=== PATIENT | male | born 1955 | race Hispanic/Latino ===

== ENCOUNTER → 2021-04-13 | Outpatient (CLI) | payer OTHER ==
[~2021-04-13] MED LIST: AMIO100T4 PO; CARV6.25 PO; FURO40TA5 PO; INSU300I3 SQ; METF-910 PO; SACU1TAB PO; SPIR25TA6 PO; TAMS-1 PO
== END | disposition home or self-care (01) ==
LOC: SHCH 14:36
PROVIDERS: ATTEND Internal Medicine Cardiovascular Disease
DX: I42.8 Other cardiomyopathies (principal)
CPT/HCPCS: 93306; 93356

== ENCOUNTER → 2022-09-26 | Outpatient (CLI) | payer OTHER, MEDICARE ==
[2022-09-26 12:22] LABS: BASOPHILS % (AUTO) 0.6 % (0.0-5.0); EOSINOPHILS % (AUTO) 1.6 % (0.0-8.0); HEMATOCRIT 41.4 % (42-54); LYMPHOCYTES % (AUTO) 29.4 % (21.0-51.0); MEAN CORPUSCULAR HEMOGLOBIN 30.9 pg (27.0-33.0); MEAN CORPUSCULAR HGB CONC 34.1 g/dL (32.0-36.0); MEAN CORPUSCULAR VOLUME 90.6 fL (79-99); MONOCYTES % (AUTO) 5.7 % (3.0-13.0); NEUTROPHILS % (AUTO) 62.5 % (40.0-77.0); PLATELET COUNT (AUTO) 245 K/uL (130-400); RED BLOOD CELL COUNT(AUTO) 4.57 MIL/uL (4.50-6.20); RED CELL DISTRIBUTION WIDTH 11.9 % (11.0-15.5); WHITE BLOOD COUNT (AUTO) 8.5 K/uL (4.8-10.8)
[2022-09-26 12:49] LABS: ALBUMIN 3.6 g/dL (3.5-5.0); CREATININE 0.8 mg/dL (0.5-1.5); POTASSIUM 4.2 mmol/L (3.5-5.1); TOTAL PROTEIN, SERUM 8.2 g/dL (6.0-8.3)
== END | disposition home or self-care (01) ==
LOC: LAB 11:21
PROVIDERS: ATTEND Nurse Practitioner Acute Care
DX: I48.0 Paroxysmal atrial fibrillation (principal); Z79.01 Long term (current) use of anticoagulants
CPT/HCPCS: 36415; 80053; 85025

== ENCOUNTER → 2022-11-17 | Outpatient (CLI) | payer OTHER, MEDICARE ==
[~2022-11-17] MED LIST changes: -AMIO100T4 PO; +APIX5TAB PO; +ASPI-1197 PO; +FURO20TA4 PO; -FURO40TA5 PO; +ONDA4TAB10 PO; +PANT40TA54 PO; -SACU1TAB PO; +SENN-304 PO; -SPIR25TA6 PO
[2022-11-17 15:24] LABS: BASOPHILS % (AUTO) 0.3 % (0.0-5.0); EOSINOPHILS % (AUTO) 0.3 % (0.0-8.0); HEMATOCRIT 30.4 % (42-54); LYMPHOCYTES % (AUTO) 9.9 % (21.0-51.0); MEAN CORPUSCULAR HEMOGLOBIN 30.4 pg (27.0-33.0); MEAN CORPUSCULAR HGB CONC 32.2 g/dL (32.0-36.0); MEAN CORPUSCULAR VOLUME 94.4 fL (79-99); MONOCYTES % (AUTO) 4.4 % (3.0-13.0); NEUTROPHILS % (AUTO) 84.4 % (40.0-77.0); PLATELET COUNT (AUTO) 350 K/uL (130-400); RED BLOOD CELL COUNT(AUTO) 3.22 MIL/uL (4.50-6.20); WHITE BLOOD COUNT (AUTO) 15.8 K/uL (4.8-10.8)
[2022-11-17 15:41] LABS: ALBUMIN 2.1 g/dL (3.5-5.0); POTASSIUM 4.4 mmol/L (3.5-5.1); TOTAL PROTEIN, SERUM 7.3 g/dL (6.0-8.3)
== END | disposition home or self-care (01) ==
LOC: LAB 14:05
PROVIDERS: ATTEND Nurse Practitioner Acute Care
DX: I50.22 Chronic systolic (congestive) heart failure (principal)
CPT/HCPCS: 36415; 80053; 85025

== ENCOUNTER 2022-12-15 05:58 | Day surgery (SDC) | payer OTHER, MEDICARE ==
[~2022-12-15 05:58] MED LIST changes: +ROSU20TA73 PO
[2022-12-15] MEDS ORDERED: CLOP75TA32 PO (07:17)
[2022-12-15] MEDS ORDERED: FURO40TA5 PO (07:17)
[2022-12-15] MEDS ORDERED: EMPA10TA PO (07:17)
[2022-12-15] MEDS ORDERED: FAMO40TA7 PO (07:17)
[2022-12-15] MEDS ORDERED: AMIO200T68 PO (07:17)
[2022-12-15] MEDS ORDERED: LISI10TA24 PO (07:17)
[2022-12-15 07:28] LABS: INR 0.97 (0.85-1.15); PROTHROMBIN TIME 11.3 SEC (9.6-11.6)
[2022-12-15 07:29] LABS: PARTIAL THROMBOPLASTIN TIME 29.8 SEC (26.3-35.5)
[2022-12-15] MEDS ORDERED: IOHEXOL-350 50ML VIAL IV ONE (09:03)
[2022-12-15] MEDS ORDERED: LIDOCAINE HCL 1% 20 ML VIAL ONE (09:03)
== END 2022-12-15 10:15 | disposition home or self-care (01) ==
LOC: DAH 05:58
PROVIDERS: ATTEND Surgery
DX: K81.0 Acute cholecystitis (principal); Z79.899 Other long term (current) drug therapy; Z79.01 Long term (current) use of anticoagulants
CPT/HCPCS: 76080; 49424; 85610; 85730; 82948; 36415; J1644; Q9967; A4215; A4222; A4221; A4663; A4216; A4606; A4223 ×3

== ENCOUNTER 2023-02-28 07:21 | Day surgery (SDC) | payer OTHER, MEDICARE ==
[2023-02-21 15:56] VITALS: BP 142/72; PULSE 70; RESP 18
[2023-02-28] VITALS (9 sets, daily range): BP systolic 105–163; BP diastolic 58–78; PULSE 60–71; RESP 16
[~2023-02-28] VITALS: Ht 160 cm; Wt 89.7 kg
[~2023-02-28 07:21] MED LIST changes: +0.9%NACL 1000ML 1,000 ML IV ONE; +AMIO200T68 PO; +AMOX500T2 PO; -FURO20TA4 PO; +FURO40TA5 PO; +LISI10TA24 PO; -ONDA4TAB10 PO; +PIOG45TA64 PO; +SEMA0.258 SQ; -SENN-304 PO
[2023-02-28] MEDS ORDERED: AMOX500C2 PO (07:32)
[2023-02-28] MEDS ORDERED: PIOG45TA64 PO (07:52)
[2023-02-28] MEDS ORDERED: PROPOFOL 10 MG/ML 20ML VIAL IV ONE (09:28)
[2023-02-28] MEDS ORDERED: PHENYLEPHRINE HCL 10 MG/ML 1ML VIAL IV ONE (09:48)
== END 2023-02-28 10:45 | disposition home or self-care (01) ==
LOC: ENDO 07:21 → DAH 07:21 → ENDO 10:45
PROVIDERS: ATTEND Internal Medicine Gastroenterology
DX: R19.5 Other fecal abnormalities (principal); K63.5 Polyp of colon; K57.30 Diverticulosis of large intestine without perforation or abscess without bleeding; I10 Essential (primary) hypertension; E11.9 Type 2 diabetes mellitus without complications; I48.91 Unspecified atrial fibrillation; D64.9 Anemia, unspecified; Z82.49 Family history of ischemic heart disease and other diseases of the circulatory system; Z87.891 Personal history of nicotine dependence; Z83.3 Family history of diabetes mellitus; Z82.5 Family history of asthma and other chronic lower respiratory diseases; Z79.899 Other long term (current) drug therapy; Z79.84 Long term (current) use of oral hypoglycemic drugs; Z79.4 Long term (current) use of insulin; Z79.82 Long term (current) use of aspirin; Z90.49 Acquired absence of other specified parts of digestive tract; Z79.01 Long term (current) use of anticoagulants
CPT/HCPCS: 82948; 45380; J7030 ×2; J2704; J2371; A4620; A4215 ×2; A4223; A7002; A4221; A4663; A4216; A4606; C1751; J3490

== ENCOUNTER → 2023-05-14 | Outpatient (CLI) | payer OTHER, MEDICARE ==
[~2023-05-14] MED LIST changes: -0.9%NACL 1000ML 1,000 ML IV ONE; +AMOX500C2 PO; +REGADENOSON 0.4 MG/5 ML PF SYG IVP ONE
== END | disposition home or self-care (01) ==
LOC: SHCH 05-11 08:32
PROVIDERS: ATTEND Internal Medicine Cardiovascular Disease
DX: I25.10 Atherosclerotic heart disease of native coronary artery without angina pectoris (principal)
CPT/HCPCS: 78452; 96374; 93017; J2785; A9500 ×2

== ENCOUNTER → 2023-11-13 | Outpatient (CLI) | payer OTHER ==
[~2023-11-13] MED LIST changes: -REGADENOSON 0.4 MG/5 ML PF SYG IVP ONE
== END | disposition home or self-care (01) ==
LOC: SHCH 08:59
PROVIDERS: ATTEND Internal Medicine Cardiovascular Disease
DX: I35.0 Nonrheumatic aortic (valve) stenosis (principal)
CPT/HCPCS: 93306

== ENCOUNTER 2024-04-22 09:03 | Day surgery (SDC) | payer OTHER, MEDICARE ==
[2024-04-18 15:35] LABS: BASOPHILS # (AUTO) 0.03 K/uL (0.00-0.20); BASOPHILS % (AUTO) 0.5 % (0.0-5.0); EOSINOPHILS # (AUTO) 0.18 K/uL (0.00-0.70); EOSINOPHILS % (AUTO) 2.7 % (0.0-8.0); HEMATOCRIT 40.8 % (42-54); IMMATURE GRANULOCYTE ABSOLUTE 0.01 K/uL (0-1); LYMPHOCYTES # (AUTO) 2.1 K/uL (1.0-4.8); LYMPHOCYTES % (AUTO) 31.6 % (21.0-51.0); MEAN CORPUSCULAR HEMOGLOBIN 31.8 pg (27.0-33.0); MEAN CORPUSCULAR HGB CONC 33.1 g/dL (32.0-36.0); MEAN CORPUSCULAR VOLUME 96.2 fL (79-99); MONOCYTES # (AUTO) 0.4 K/uL (0.1-1.0); MONOCYTES % (AUTO) 5.4 % (3.0-13.0); NEUTROPHILS % (AUTO) 59.6 % (40.0-77.0); PLATELET COUNT (AUTO) 171 K/uL (130-400); RED BLOOD CELL COUNT(AUTO) 4.24 MIL/uL (4.50-6.20); WHITE BLOOD COUNT (AUTO) 6.7 K/uL (4.8-10.8)
[2024-04-18 15:48] LABS: INR 1.01 (0.85-1.15); PROTHROMBIN TIME 10.9 SEC (9.6-11.6)
[2024-04-18 15:49] LABS: PARTIAL THROMBOPLASTIN TIME 30.6 SEC (26.3-35.5)
[2024-04-18 15:59] VITALS: BP 117/54; PULSE 74; RESP 14; TEMP 98.2
[2024-04-18 16:13] LABS: ADD UA MICROSCOPIC YES; APPEARANCE,URINE CLEAR (CLEAR); BILIRUBIN,URINE NEGATIVE (NEGATIVE); COLOR,URINE COLORLESS (YELLOW); GLUCOSE, URINE (UA) >=1000 mg/dL (NEGATIVE); KETONES,URINE NEGATIVE (NEGATIVE); LEUKOCYTE ESTERASE ,URINE 75 Leu/uL (NEGATIVE); NITRATE,URINE NEGATIVE (NEGATIVE); OCCULT BLOOD,URINE NEGATIVE (NEGATIVE); PROTEIN,URINE NEGATIVE (NEGATIVE); UROBILINOGEN,URINE 0.2 mg/dL (0.2-1.0)
[2024-04-18 16:15] LABS: MUCUS,URINE RARE LPF (None Seen); SQUAMOUS EPITHELIAL CELL,UR RARE /HPF (0-2); WBC,URINE 0-1 /HPF (0-1)
[2024-04-18 16:17] LABS: CREATININE 1.3 mg/dL (0.5-1.3); POTASSIUM 4.3 mmol/L (3.5-5.1)
--- NOTE | 2024-04-18 16:23 | HMCIMG ---
CHEST 1VW REASON: PREOP COMPARISON: 11/08/2022 FINDINGS: Single view of the chest was obtained. Lungs are clear. Heart size is normal. There is no pulmonary vascular congestion. Mediastinum and bony thorax appear unremarkable. IMPRESSION: 1. Normal single view chest x-ray.
[2024-04-18 16:34] LABS: B-TYPE NATRIURETIC PEPTIDE 37 pg/mL (0-100)
--- NOTE | 2024-04-19 06:41 | EKG ---
[facility] Test Date: 2024-04-18 Test Time: 16:12:59 Pat Name: TOMER PERRY Department: [facility] Room: Gender: M Edging Machine Feeder: [id number] : 1955 Requested By: KERRI CONTRERAS Order Number: [id number] Reading MD: Lulu Mcleod Measurements Intervals [place] Rate: 83 P: 37 TX: 167 QRS: 56 QRSD: 96 T: 67 QT: 393 QTc: 462 Interpretive Statements Sinus rhythm Compared to ECG 11/21/2022 20:05:56 No significant changes Electronically Signed On 04-19-2024 16:20:21 CHEMIST INSTRUMENTATION by Lulu Mcleod Please click the below link to view image of tracing.
--- NOTE | 2024-04-21 15:23 | NUR ---
RE: LABS REPORTED BUN 22, CREAT 1.3 TO ДМИТРИЙ LOZANO NP. RECEIVED ORDERS TO HAVE PATIENT HYDRATE THIS EVENING. CALLED PATIENT AND INSTRUCTED HIM TO HYDRATE FOR HIS PROCEDURE TOMORROW, PATIENT VERBALIZED UNDERSTANDING.
[~2024-04-22] VITALS: Ht 162.6 cm; Wt 102.4 kg
[2024-04-22] VITALS (11 sets, daily range): BP systolic 98–137; BP diastolic 59–72; PULSE 68–88; RESP 14–18; TEMP 98–98.2
[~2024-04-22 09:03] MED LIST changes: +AMIO100T4 PO; -AMIO200T68 PO; -AMOX500C2 PO; -AMOX500T2 PO; -ASPI-1197 PO; -CARV6.25 PO; +DAPA10TA PO; -FURO40TA5 PO; +FURO80TA3 PO; -ROSU20TA73 PO; +ROSU20TA98 PO; -SEMA0.258 SQ
[2024-04-22] MEDS ORDERED: HEParin-NS 1,000 UNIT/500 ML 500 ML IV ONE ×2 (10:28→11:37)
[2024-04-22] MEDS ORDERED: IOHEXOL-350 50ML VIAL IV ONE (10:28)
[2024-04-22] MEDS ORDERED: NITROGLYCERIN 50MG VIAL ONE (10:28)
[2024-04-22] MEDS ORDERED: BIVALIRUDIN 250 MG/VIAL IV ONE (10:28)
[2024-04-22] MEDS ORDERED: HEParin 10,000 UNIT/10ML (1,000 UNIT/ML) VIAL ONE (10:28)
[2024-04-22] MEDS ORDERED: LIDOCAINE HCL 400MG/20ML VIAL ONE (10:28)
[2024-04-22] MEDS ORDERED: IOHEXOL 350 MG/ML 100ML INFUS..BTL IV ONE (10:28)
[2024-04-22] MEDS: 0.9%NACL 1000ML 1,000 ML IV SCH (10:34)
[2024-04-22] MEDS ORDERED: FENTanyl CITRate PF 50 MCG/1 ML 2ML VIAL ONE ×2 (10:55→12:26)
[2024-04-22] MEDS ORDERED: MIDAZOLAM HCL 1 MG/ML 2ML VIAL ONE (10:55)
[2024-04-22] MEDS ORDERED: metoPROLOL tartRATE 1 MG/ML 5ML VIAL IV ONE ×2 (11:58→11:59)
[2024-04-22] MEDS ORDERED: 0.9%NACL 10ML VIAL IVP SCH (13:00)
[2024-04-22] MEDS ORDERED: DEXTROSE 50%-WATER 50 ML DISP.SYRIN IV PRN (13:00)
--- NOTE | 2024-04-22 13:05 | PRN ---
DATE OF PROCEDURE: 04/22/2024 PROCEDURE PERFORMED: RIGHT AND LEFT HEART CATHETERIZATION SPINNING MULE OPERATOR: Kerri Contreras MD, LOCATED WITHIN [facility] INDICATION: Aortic stenosis PROCEDURE NOTE: After informed consent was obtained the patient was prepped and draped in the [facility] sterile fashion. A 6 Amharic 55 cm arterial sheath was inserted in the right femoral artery using a micropuncture technique with ultrasound guidance. This was performed after fluoroscopic identification of bony landmarks to facilitate a more accurate puncture of the right common femoral artery. The arterial sheath was aspirated and flushed. A seven Amharic venous sheath with hemostatic valve was then inserted into the right common femoral vein again with ultrasound guidance and micropuncture technique. A seven Amharic S tip [place] catheter was advanced using balloon floatation to the right heart with pressure measurements in the RA, RV, PA, and pulmonary capillary wedge positions. A 6 Amharic pigtail catheter was then advanced over a J-tipped guidewire to the ascending aorta and using a straight wire we traverse the aortic valve with mild difficulty only. The catheter was aspirated and flushed and simultaneous pressure measurements were obtained both in descending aorta and LV. Cardiac output determinations were obtained and calculation of aortic valve area using both Sydnee and thermodilution were obtained. A left ventriculogram was then performed in a 30 [place] projection. A pullback procedure was then performed, and this catheter was removed over a J-tipped guidewire. A 6F JL-4 was then advanced to the ascending aorta over a J-tipped guidewire, was aspirated and flushed, and was used for selective left coronary angiograms in multiple obliquities. A JR-4 was advanced in a similar fashion to the asc ending aorta over a J-tipped guidewire and was used for selective right coronary angiograms in multiple obliquities with findings as outlined below. A right common femoral angiogram was performed to assess suitability for Perclose suture closure and the Perclose device was deployed in standard fashion. Perclose suture closure was successful without bleeding or hematoma. The patient tolerated the procedure well and was returned to the holding area in stable condition. FINDINGS: RIGHT HEART CATHETERIZATION: RA pressure was 17 mm of mercury on the V-wave and 15 mm of mercury mean. There was no A-wave because of atrial fibrillation. RV pressure was 45/2 mm of mercury. PA pressure 45/20 mm of mercury, with mean PA pressure of 26 mm of mercury. Pulmonary capillary wedge pressure was 20 mm of mercury on the V-wave and 17 mm of mercury mean. Cardiac output using thermodilution was 4.4 with cardiac index of 2.2 L per minute per meter squared. Sydnee cardiac output was 4.8 with cardiac index of 2.4 L per minute per meter squared. LEFT HEART HEMODYNAMICS: LVEDP was 16 mm of mercury prior to LV-gram in 18 mm of mercury after LV-gram Peak to peak aortic valve gradient was 18 mm of mercury Mean aortic valve gradient was 14 mm of mercury Aortic valve area was 1.4 cm2 using thermodilution Aortic valve area was 1.5 cm2 using Sydnee cardiac output estimate LEFT VENTRICULOGRAM: A left ventriculogram demonstrated an LVEF of 50% using single plane planimetry. There was no mitral valve regurgitation. CORONARY ANGIOGRAM: LEFT MAIN: The left main coronary was normal. LEFT ANTERIOR DESCENDING: The ostial LAD had a 30% stenosis in the mid to distal LAD of 40% stenosis. The diagonal branches were normal. LEFT CIRCUMFLEX: The left circumflex was nondominant with a 30% ostial stenosis. The OM1 was normal in the OM2 had a 40% ostial stenosis. RAMUS INTERMEDIATE BRANCH: There was no ramus intermediate branch. RIGHT CORONARY ARTERY: The right coronary artery was dominant and had a 40% proximal stenosis.. IMPRESSION: Mild global hypokinesis with LVEF of 50% by single plane planimetry. No mitral valve regurgitation. Moderate aortic stenosis with peak aortic valve gradient of 18 mm of mercury, mean aortic valve gradient of 14 mm of mercury by simultaneous pressure measurement. Aortic valve area 1.4 cm2 by thermodilution and 1.5 cm2 by Sydnee estimate of cardiac output. Nonobstructive coronary artery disease: 30% ostial LAD stenosis and 40% mid to distal LAD stenosis 30% ostial left circumflex stenosis 40% OM2 stenosis 40% proximal RCA stenosis. RECOMMENDATION: Risk factor modification to prevent progression of coronary disease. Continued medical therapy with SB prophylaxis for moderate aortic stenosis. Consider repeat cardiac catheterization in 1-2 years. COMPLICATIONS OF PROCEDURE: None, the patient tolerated the procedure well and was returned to his room in stable condition. HEMOSTASIS: Perclose suture closure was successful without bleeding or hematoma. ESTIMATED BLOOD LOSS: 10 mL. CONTRAST TOTAL: 125 mL. KERRI CONTRERAS MD Apr 22, 2024 13:05
[2024-04-22] MEDS ORDERED: ROSU40TA88 PO (14:58)
[2024-04-22] MEDS ORDERED: INSULIN humuLIN R 100 UNIT/ML 3ML SQ SCH (16:30)
--- NOTE | 2024-04-22 18:00 | NUR ---
verified called dr oliva to see when pt is ok to resume eliquis. ok to resume in am. spouse notified
--- NOTE | 2024-04-22 18:07 | NUR ---
Full and complete discharge instructions given both verbally and in writing to Patient and . Femoral site precautions discussed with all questions answered. Femoral site clean, soft without bleeding or hematoma evident. Pedal pulses intact. PIV dc'd with catheter tip intact. W/C to POV with to home.
== END 2024-04-22 18:00 | disposition home or self-care (01) ==
LOC: DAH 09:03
PROVIDERS: ATTEND Internal Medicine Cardiovascular Disease
DX: I35.0 Nonrheumatic aortic (valve) stenosis (principal); I25.10 Atherosclerotic heart disease of native coronary artery without angina pectoris; I48.0 Paroxysmal atrial fibrillation; I11.0 Hypertensive heart disease with heart failure; I50.32 Chronic diastolic (congestive) heart failure; E78.5 Hyperlipidemia, unspecified; E11.9 Type 2 diabetes mellitus without complications; E66.01 Morbid (severe) obesity due to excess calories; G47.33 Obstructive sleep apnea (adult) (pediatric); Z79.01 Long term (current) use of anticoagulants; Z79.899 Other long term (current) drug therapy; Z98.890 Other specified postprocedural states; Z68.41 Body mass index [BMI] 40.0-44.9, adult; Z79.84 Long term (current) use of oral hypoglycemic drugs
CPT/HCPCS: 80048; 83880; 85025; 85610; 85730; 87086; 81001; 36415; 71045; 93005; 93460; 82948; C1769 ×3; C1894 ×4; C1760; C1893; Q9965; J3010 ×2; J3490 ×4; J7030; J1644 ×3; J2250; Q9967 ×2; A4215; A4222; A4221; A4663; A4216; A4606; A4223 ×3; 99156; 99157; J0583

== ENCOUNTER 2024-07-19 12:03 | Emergency (ER) | payer OTHER, MEDICARE ==
[~2024-07-19] VITALS: Ht 162.6 cm; Wt 102.1 kg
[~2024-07-19 12:03] MED LIST changes: -ROSU20TA98 PO; +ROSU40TA88 PO
[2024-07-19 12:15] VITALS: BP 143/79; PULSE 86; RESP 16; TEMP 98.2; O2SAT 95
--- NOTE | 2024-07-19 12:18 | ERN ---
General Chief Complaint: Eye Problems Stated Complaint: RED EYE Time Seen by MD: 12:03 History of Present Illness Initial Comments 68-year-old male who presents for right eye redness. Patient reports he woke up this morning with a subconjunctival hemorrhage. He was no irritation no patient was changes or further complaints Allergies: Coded Allergies: No Known Drug Allergies (Verified Allergy, Unknown, 03/22/21) Home Meds Reported Medications Rosuvastatin Calcium (Rosuvastatin Calcium) 40 Mg Tablet, 40 MG PO DAILY, TAB 04/22/24 Furosemide (Furosemide) 80 Mg Tablet, 1 TAB PO DAILY for 30 Days, #30 TAB 0 Refills 04/18/24 Amiodarone HCl (Amiodarone HCl) 100 Mg Tablet, 1 TAB PO DAILY for 30 Days, #30 TAB 0 Refills 04/18/24 Dapagliflozin Propanediol (Farxiga) 10 Mg Tablet, 1 TAB PO DAILY for 30 Days, #30 TAB 0 Refills 04/18/24 Pioglitazone HCl (Pioglitazone HCl) 45 Mg Tablet, 45 MG PO DAILY, TAB 02/28/23 Lisinopril (Lisinopril) 10 Mg Tablet, 10 MG PO DAILY, TAB 02/23/23 Pantoprazole Sodium (Pantoprazole Sodium) 40 Mg Tablet.dr, 40 MG PO DAILY, TAB 11/04/22 Apixaban (Eliquis) 5 Mg Tablet, 5 MG PO BID, TAB 11/04/22 Insulin Glargine,Hum.rec.anlog (Toujeo Max Solostar) 300 Unit/Ml (3 Ml) Ins uln.pen, 60 UNIT SQ HS, SYRINGE 03/25/21 Metformin HCl (Metformin HCl ER) 500 Mg Tab.er.24h, 500 MG PO DAILYBKFST, TAB 03/25/21 Tamsulosin HCl (Flomax) 0.4 Mg Cap.er.24h, 0.4 MG PO DAILY, CAPSULE. 03/25/21 Past Medical History Past Medical History: Diabetes-Type II, High Cholesterol, Heart Disease Past Surgical History: Cholecystectomy, Other ROS Dictation CONSTITUTIONAL: No chills, no fever, no weakness, no diaphoresis, no malaise. HEAD/FACE: No signs of trauma. EENT: Right eye subconjunctival hemorrhage no complaints RESPIRATORY: No cough, no orthopnea, no SOB, no stridor, no wheezing. CARDIOVASCULAR: No chest pain, no edema, no palpitations, no syncope. GASTROINTESTINAL/ABDOMINAL: No abdominal pain, no constipation, no diarrhea, no nausea, no vomiting. GENITOURINARY: No abnormal discharge, no dysuria, no frequent urination, no hematuria. No complaints of pain in the genitals. MUSCULOSKELETAL: No back pain, no gout, no joint pain, no joint swelling, no muscle pain, no muscle stiffness, no neck pain. INTEGUMENTARY: No change in color, no change in hair/nails, no dryness, no lesion, no lumps, no rash. NEUROLOGICAL/PSYCH: No anxiety, not depressed, no emotional problem, no headache, no numbness, no pre-existing deficit, no history of seizures, no tremors, no weakness. HEMATOLOGIC/LYMPHATIC: Not anemic, no history of blood clots, no apparent bleeding, no bruising, glands not swollen. All Systems Negative, Except as Noted. Physical Exam Physical Exam Dictation VITAL SIGNS: Reviewed. GENERAL APPEARANCE: Alert, oriented x3, no acute distress, obese. HEAD AND FACE: Non-traumatic. EYES: PERRL, right subconjunctival hemorrhage, anterior chamber clear, no trauma EARS: Pinnas intact and no signs of trauma or erythema. Ear canals clear and no discharge. TMs no erythema. NOSE: No discharge, no bleeding. OROPHARYNX: Mouth normal, teeth no caries, tongue pink. Pharynx clear, no erythema. Tonsils no exudates, no abscesses noted. Mucous membrane moist. NECK: Supple, non-tender, no thyromegaly, no masses, no JVD, no bruits. BREAST: Deferred. CHEST: No tenderness, no crepitus, no paradoxical movement, no retractions. LUNGS: Clear, well-ventilated, symmetric, no rales, no wheezing, no rhonchi, no stridor, good breath sounds bilaterally. HEART: Regular rate, regular rhythm, no murmur, no gallops. VASCULAR: No peripheral edema. ABDOMEN: Soft, positive bowel sounds, nondistended, no guarding, nontender, no rebound, no masses no hepatomegaly, no splenomegaly, no Lundy's sign, no hernias. RECTAL: Deferred. GENITAL: Deferred. NEUROLOGICAL: Normal speech, gross motor function intact, gross sensory function intact. MUSCULOSKELETAL: Neck nontender, full range of motion, back nontender, full r swati of motion. EXTREMITIES: Nontender, full range of motion. SKIN: Color pink, dry, no turgor, no rash, no lacerations, no abrasions, no contusions. LYMPHATICS: Deferred. MDM CC: Eye redness Atraumatic Historian: Patient Comorbidities: Diabetes hypertension, anticoagulated Limitations by social determinants of health: None Differential diagnosis: Subconjunctival hemorrhage Vital signs are stable Clinically patient has a subconjunctival hemorrhage. I suspect it is due to the blood thinners. No vision changes, ELAYNE, EOMI, the blood is only in the conjunctiva, does not go into the anterior chamber. He was no complaints There is no labs or imaging indicated We will DC with supportive care ED Course Vital Signs Date Time Temp Pulse Resp B/P (MAP) Pulse Ox O2 Delivery O2 Flow Rate FiO2 07/19/24 12:15 98.2 86 16 143/79 95 Room Air* 0 21 07/19/24 12:09 98.2 86 16 143/79 95 Room Air 0 DX & DISP Disposition: Discharge Departure Impression: Primary Impression: Subconjunctival hemorrhage of right eye Condition: Stable Additional Instructions: You have a subconjunctival hemorrhage. This occurs when a small blood vessel in the eye ruptures, causing a red patch on the white part of the eye. This is usually homeless and resolves on its own within a couple of weeks. You can expect color changes in the eye similar to a bruise. No vision loss or pain should occur, though mild irritation or a scratchy sensation may be present. Try to avoid rubbing the eye. This can worsen the bleeding. You can use [id number] artificial tears as needed for discomfort. I do not recommend stopping your blood thinner. Please continue with this medication as well as your blood pressure medications as already prescribed. Please return to the emergency department if you have any concerns. If your symptoms have not improved in two weeks, I recommend that you follow up with the primary doctor for re-evaluation. Referrals: CAROLINE GRACIA MD (PCP) CECI CUMMINGS DO Jul 19, 2024 12:18
== END 2024-07-19 12:34 | disposition home or self-care (01) ==
LOC: EDH 12:03
DX: H11.31 Conjunctival hemorrhage, right eye (principal); E11.9 Type 2 diabetes mellitus without complications; E78.00 Pure hypercholesterolemia, unspecified; I10 Essential (primary) hypertension; Z79.01 Long term (current) use of anticoagulants; Z79.84 Long term (current) use of oral hypoglycemic drugs; Z79.899 Other long term (current) drug therapy; Z90.49 Acquired absence of other specified parts of digestive tract
CPT/HCPCS: 99281

== ENCOUNTER 2025-03-17 15:50 | Observation (INO) | payer OTHER, MEDICARE ==
[~2025-03-17] VITALS: Ht 162.6 cm; Wt 104.3 kg
[~2025-03-17 15:50] MED LIST changes: -TAMS-1 PO; +TAMS-55 PO
--- NOTE | 2025-03-17 16:13 | ERN ---
ED Note History of Present Illness Stated Complaint: COUGH Chief Complaint: Cough Time Seen by MD: 15:58 Dictation: PATIENT IS A 69-YEAR-OLD MALE HERE COMPLAINING OF A CHRONIC COUGH FOR THE LAST THREE WEEKS WITHOUT FEVER CHILLS NAUSEA VOMITING. HE DENIES CHEST PAIN BACK PA IN. PATIENT ALSO HAS A HAD SIGNIFICANT EDEMA TO HIS LOWER EXTREMITIES FOR THE SAME AMOUNT OF TIME. SAYS HIS ACQUISITION ADVISOR'S HIS DOCTOR DIANE AND HE SAW HIM TWO WEEKS AGO, TOLD HIM TO GO TO THE EMERGENCY ROOM IF IT GOT WORSE. HE STATES IT THAT TIME SOME MEDICATIONS WERE PRESCRIBED HOWEVER HE CAN NOT RECALL THE NAMES. Allergies: Coded Allergies: No Known Drug Allergies (Verified Allergy, Unknown, 03/22/21) Home Meds Reported Medications Rosuvastatin Calcium (Rosuvastatin Calcium) 40 Mg Tablet, 40 MG PO DAILY, TAB 04/22/24 Furosemide (Furosemide) 80 Mg Tablet, 1 TAB PO DAILY for 30 Days, #30 TAB 0 Refills 04/18/24 Amiodarone HCl (Amiodarone HCl) 100 Mg Tablet, 1 TAB PO DAILY for 30 Days, #30 TAB 0 Refills 04/18/24 Dapagliflozin Propanediol (Farxiga) 10 Mg Tablet, 1 TAB PO DAILY for 30 Days, #30 TAB 0 Refills 04/18/24 Pioglitazone HCl (Pioglitazone HCl) 45 Mg Tablet, 45 MG PO DAILY, TAB 02/28/23 Lisinopril (Lisinopril) 10 Mg Tablet, 10 MG PO DAILY, TAB 02/23/23 Pantoprazole Sodium (Pantoprazole Sodium) 40 Mg Tablet.dr, 40 MG PO DAILY, TAB 11/04/22 Apixaban (Eliquis) 5 Mg Tablet, 5 MG PO BID, TAB 11/04/22 Insulin Glargine,Hum.rec.anlog (Toujeo Max Solostar) 300 Unit/Ml (3 Ml) Insuln.pen, 60 UNIT SQ HS, SYRINGE 03/25/21 Metformin HCl (Metformin HCl ER) 500 Mg Tab.er.24h, 500 MG PO DAILYBKFST, TAB 03/25/21 Tamsulosin HCl (Flomax) 0.4 Mg Cap.er.24h, 0.4 MG PO DAILY, CAPSULE. 03/25/21 Past Medical History Past Medical History: CHF, Diabetes-Type II, Hypertension Surgical History: Cholecystectomy, Other Surgical History Other: PROSTATE BIOPSY RN Note Reviewed/Agreed w/PFSH: Yes Review of System Dictation CONSTITUTIONAL: NEGATIVE EXCEPT FOR HPI HEAD/FACE: NEGATIVE EXCEPT FOR HPI EENT: NEGATIVE EXCEPT FOR HPI RESPIRATORY: NEGATIVE EXCEPT FOR HPI COUGH/SOB/DEPENDENT EDEMA GASTROINTESTINAL/ABDOMINAL: NEGATIVE EXCEPT FOR HPI GENITOURINARY: NEGATIVE EXCEPT FOR HPI MUSCULOSKELETAL: NEGATIVE EXCEPT FOR HPI INTEGUMENTARY: NEGATIVE EXCEPT FOR HPI NEUROLOGICAL/PSYCH: NEGATIVE EXCEPT FOR HPI HEMATOLOGIC/LYMPHATIC: NEGATIVE EXCEPT FOR HPI ALL SYSTEMS NEGATIVE, EXCEPT NOTED ABOVE. 13 POINT REVIEW OF SYSTEMS ASSESSED AND ALL NEGATIVE EXCEPT FOR ABOVE. Initial Vital Sign VS Vital Signs Date Time Temp Pulse Resp B/P (MAP) Pulse Ox O2 Delivery O2 Flow Rate FiO2 03/17/25 15:52 98.2 109 18 146/76 98 Room Air 0 03/17/25 23:01 21 Physical Exam Dictation VITAL SIGNS REVIEWED GENERAL APPEARANCE: ALERT, ORIENTED X 3, MILD ACUTE DISTRESS, WELL DEVELOPED, NOURISHED. MORBID OBESITY HEAD AND FACE: NON-TRAUMATIC. EYES: PERRL, PINK CONJUNCTIVAS, EYELID NO TRAUMA, ANTERIOR CHAMBER WITH ARCUS SENILIS. EARS: PINNAS INTACT AND NO SIGNS OF TRAUMA OR ERYTHEMA EAR CANALS CLEAR AND NO DISCHARGE TM NO ERYTHEMA NOSE: NO DISCHARGE, NO BLEEDING. OROPHARYNX: MOUTH NORMAL, TONGUE PINK, PHARYNX CLEAR,NO ERYTHEMA, TONSILS NO EXUDATES, NO ABSCESSES NOTED, MUCOUS MEMBRANE MOIST NECK: SUPPLE, NON-TENDER, NO THYROMEGALY, NO MASSES, NO JVD, NO BRUITS BREAST:DEFERRED CHEST:NO TENDERNESS, NO CREPITUS, NO PARADOXICAL MOVEMENT, NO RETRACTIONS LUNGS:CLEAR, WELL-VENTILATED, CLEAR TO AUSCULTATION, VERY DIMINISHED IN THE BASES. HEART: REGULAR RATE, REGULAR RHYTHM, NO MURMUR, NO GALLOPS VASCULAR: N 3+ PERIPHERAL EDEMA, BILATERAL LOWER EXTREMITIES TO KNEES ABDOMEN: SOFT, POSITIVE BOWEL SOUNDS, NONDISTENDED, NO GUARDING, NONTENDER, NO REBOUND, NO MASSES NO HEPATOMEGALY, NO SPLENOMEGALY, NO FOSTER'S SIGN, NO HERNIAS. RECTAL: DEFERRED GENITAL: DEFERRED NEUROLOGICAL: NORMAL SPEECH, MOTOR FUNCTION INTACT, SENSORY FUNCTION INTACT MUSCULOSKELETAL: NECK NONTENDER, FULL RANGE OF MOTION, BACK NONTENDER, FULL RANGE OF MOTION, EXTREMITIES: NONTENDER, FULL RANGE OF MOTION SKIN: COLOR PINK, DRY, NO TURGOR, NO RASH, NO LACERATIONS, NO ABRASIONS, NO CONTUSIONS. LYMPHATIC: DEFERRED Results (Laboratory/Radiology) Laboratory/Radiology Laboratory Tests Test 03/17/25 15:57 03/17/25 16:20 Influenza Type A Antigen Negative For Type A Influenza Type B Antigen Negative For Type B SARS-CoV-2, RNA, NAAT NEGATIVE SARS CoV-2 Group A Streptococcus Rapid negative (NEGATIVE) White Blood Count 6.9 K/uL (4.8-10.8) Red Blood Count 4.58 MIL/uL (4.50-6.20) Hemoglobin 13.7 g/dL (14.0-18.0) L Hematocrit 44.6 % (42-54) Mean Corpuscular Volume 97.4 fL (79-99) Mean Corpuscular Hemoglobin 29.9 pg (27.0-33.0) Mean Corpuscular Hemoglobin Concent 30.7 g/dL (32.0-36.0) L Red Cell Distribution Width 13.4 % (11.0-15.5) Platelet Count 103 K/uL (130-400) L Mean Platelet Volume 11.0 fL (7.5-10.5) H Immature Granulocyte % (Auto) 0.3 % (0-1) Neutrophils (%) (Auto) 70.6 % (40.0-77.0) Lymphocytes (%) (Auto) 21.3 % (21.0-51.0) Monocytes (%) (Auto) 5.8 % (3.0-13.0) Eosinophils (%) (Auto) 1.6 % (0.0-8.0) Basophils (%) (Auto) 0.4 % (0.0-5.0) Neutrophils # (Auto) 4.9 K/uL (1.8-7.7) Lymphocytes # (Auto) 1.5 K/uL (1.0-4.8) Monocytes # (Auto) 0.4 K/uL (0.1-1.0) Eosinophils # (Auto) 0.11 K/uL (0.00-0.70) Basophils # (Auto) 0.03 K/uL (0.00-0.20) Absolute Immature Granulocyte (auto 0.02 K/uL (0-1) Nucleated Red Blood Cells 0.0 % (0.0-0.19) Red Blood Cell Morphology See comments Sodium Level 138 mmol/L (136-145) Potassium Level 4.2 mmol/L (3.5-5.1) Chloride Level 100 mmol/L (101-111) L Carbon Dioxide Level 36 mmol/L (21-32) H Blood Urea Nitrogen 19 mg/dL (7-18) H Creatinine 1.0 mg/dL (0.5-1.3) Glomerular Filtration Rate Calc 81 mL/min (>90) Random Glucose 120 mg/dL (70-105) H Total Calcium 8.1 mg/dL (8.5-10.1) L Magnesium Level 2.00 mg/dL (1.80-2.40) Troponin I High Sensitivity 25 ng/L (4-75) B-Type Natriuretic Peptide 680 pg/mL (0-100) H Labs Reviewed?: Yes EKG Comment: 1615/EKG ATRIAL FIBRILLATION RVR/VENTRICULAR RATE 110. ED Course ED Course Orders Procedure Category Date Status Time Covid Rna Naat LAB 03/17/25 Complete 15:57 Influenza Type A & B, LAB 03/17/25 Complete Rapid 15:57 Rapid (Group A Strep) LAB 03/17/25 Complete 15:57 B-Type Natriuretic LAB 03/17/25 Complete Peptide 16:10 Cbc With Differential LAB 03/17/25 Complete 16:10 Chest 1vw RAD 03/17/25 Resulted 16:10 12 Lead Ekg Tracing- EKG 03/17/25 Resulted Technical 16:10 Magnesium LAB 03/17/25 Complete 16:10 Troponin I High LAB 03/17/25 Complete Sensitivity 16:10 Basic Metabolic Panel LAB 03/17/25 Complete 16:10 Furosemide 40mg Vial PHA 03/17/25 Complete (Lasix 40mg Vial) 17:30 Furosemide 80 Mg PHA 03/17/25 Complete Tablet (Lasix 80mg 22:00 Furosemide 40 Mg PHA 03/17/25 Complete Tablet (Lasix 40mg 22:00 12 Lead Ekg Tracing- EKG 03/17/25 Complete Technical 22:46 Metoprolol Tartrate PHA 03/17/25 Logged (Lopressor) 23:00 Metoprolol Tartrate PHA 03/17/25 Complete (Lopressor) 23:05 Current Medications Medications (Trade) Dose Ordered Sig/Cathie Route PRN Reason Start Time Stop Time Status Last Admin Dose Admin Furosemide (LASix 40MG TAB) 80 mg ONCE ONCE PO 03/17/25 22:00 03/17/25 22:05 DC Furosemide (LASix 40MG VIAL) 80 mg ONCE ONCE IVP 03/17/25 17:30 03/17/25 21:54 DC Furosemide (LASix 80MG TAB) 80 mg ONCE ONCE PO 03/17/25 22:00 03/17/25 21:57 DC Metoprolol Tartrate (loprESSOR) 5 mg ONCE ONCE IV 03/17/25 23:00 03/17/25 23:01 UNV Metoprolol Tartrate (loprESSOR) 5 mg STK-MED ONCE IV 03/17/25 23:05 03/17/25 23:05 DC Vital Signs Date Time Temp Pulse Resp B/P (MAP) Pulse Ox O2 Delivery O2 Flow Rate FiO2 03/17/25 23:01 98.8 118 24 115/79 94 Room Air* 0 21 03/17/25 15:52 98.2 109 18 146/76 98 Room Air 0 Two thousand three hundred\ 11:00 p.m.: Patient noted to be in RVR with a heart rate in the 130s 140s. We will push Lopressor 5 mg. Heart rate improved to 90s/100s. We will admit at this time for observation. Patient's design engineering manager is Dr. Duffy. PCP: Dr. Gracia HEART Score Response (Comments) Value EKG: Repolarization changes 1 Age: > 65yrs (+2) 2 Risk Factors: 3+ risk factors (+2) 2 Initial Troponin: Normal limit (0) 0 Total 5 Medical Decision Making MDM MDM: DIFFERENTIAL DIAGNOSIS: AFib with a RVR, URI, cough RATIONALE: TESTS CONSIDERED AND ORDERED SECONDARY TO SHARED DECISION MAKING INCLUDE: PREVIOUS OUTSIDE RECORDS REVIEWED: OLD ER VISITS. RISK OF COMPLICATION AND/OR MORBIDITY OR MORTALITY OF PATIENT MANAGEMENT: NONE MEDICATIONS-PER MEDICATION RECONCILIATION NEED FOR HOSPITALIZATION: PATIENT DOES NOT MEET CRITERIA FOR HOSPITALIZATION. NEED FOR EMERGENCY MAJOR/MINOR SURGERY: NO THERE ARE NO SOCIAL CONCERNS WITH THIS PATIENT. PRESCRIPTION DRUG MANAGEMENT PRESCRIPTIONS WILL INCLUDE SYMPTOMATIC CARE PATIENT'S PRIOR EXTERNAL MEDICAL RECORDS FROM OTHER ER VISITS WERE REVIEWED BY ME INDICATED. PRIOR TESTING AND RESULTS FROM PREVIOUS VISITS WERE REVIEWED. PRIOR TESTS WERE TAKEN INTO ACCOUNT WITH MEDICAL DECISION MAKING AND RESOURCE UTILIZATION, INDEPENDENT HISTORIAN/HISTORIANS WERE USED TO OBTAIN COMPLETE MEDICAL HISTORY. I INDEPENDENTLY INTERPRETED THE TEST THAT WERE PERFORMED, RESULTS WERE REVIEWED BY ME AND CONSIDERED FINDINGS ON RADIOLOGY IF ORDERED. MEDICAL MANAGEMENT AND EXAMINATION INTERPRETATION DISCUSSIONS WERE HAD BY ME WITH OTHER QUALIFIED HEALTHCARE PROFESSIONALS INDICATED FOR THE PATIENT'S CARE. DX & DISP Disposition: Inpatient Decision to Admit Date: Mar 17, 2025 Decision to Admit Time: 23:14 Departure Impression: Primary Impression: Atrial fibrillation with rapid ventricular response Additional Impressions: Cough, CHF (congestive heart failure) Condition: Stable Referrals: CAROLINE GRACIA MD (PCP) ZEE GALVAN DATA WAREHOUSING MANAGER Mar 17, 2025 16:13 ERIC KLEIN MD Mar 17, 2025 23:16
[2025-03-17 16:19] LABS: RAPID GROUP A STREP negative (NEGATIVE)
[2025-03-17 16:22] LABS: SARS-CoV-2, RNA, NAAT NEGATIVE SARS CoV-2 (NEGATIVE)
--- NOTE | 2025-03-17 16:24 | EKG ---
[facility] Test Date: 2025-03-17 Test Time: 16:15:29 Pat Name: TOMER PERRY Department: ED Room: Gender: M Camp Attendant: [id number] : 1955 Requested By: ZEE GALVAN Order Number: [id number] Reading MD: [place] Mo Measurements Intervals [place] Rate: 110 P: 0 [place]: 0 QRS: 56 QRSD: 84 T: 88 QT: 342 QTc: 462 Interpretive Statements Atrial fibrillation Compared to ECG 04/18/2024 16:12:59 Sinus rhythm no longer present Electronically Signed On 03-17-2025 19:39:33 SCRIPT COORDINATOR by [place] Mo Please click the below link to view image of tracing.
[2025-03-17 16:29] LABS: INFLUENZA TYPE A Negative For Type A (NEGATIVE); INFLUENZA TYPE B Negative For Type B (NEGATIVE)
[2025-03-17 16:41] LABS: IMMATURE GRANULOCYTE ABSOLUTE 0.02 K/uL (0-1); NUCLEATED RED BLOOD CELLS 0.0 % (0.0-0.19); PLATELET COUNT (AUTO) 103 K/uL (130-400); RED BLOOD CELL COUNT(AUTO) 4.58 MIL/uL (4.50-6.20); RED CELL DISTRIBUTION WIDTH 13.4 % (11.0-15.5); WHITE BLOOD COUNT (AUTO) 6.9 K/uL (4.8-10.8)
[2025-03-17 16:58] LABS: CREATININE 1.0 mg/dL (0.5-1.3); GLOMERULAR FILTR. RATE CALC 81.0 mL/min (>90); GLUCOSE,RANDOM 120.0 mg/dL (70-105); SODIUM SERUM 138.0 mmol/L (136-145); UREA NITROGEN, BLOOD 19.0 mg/dL (7-18)
--- NOTE | 2025-03-17 18:06 | HMCIMG ---
EXAM: CR Chest, 1 View. CLINICAL HISTORY: SHORTNESS A BREATH COMPARISON: None provided. FINDINGS: LUNGS: The lungs show no infiltrate or other acute finding. PLEURAL SPACES: No evidence of pleural effusion or pneumothorax. MEDIASTINUM: Mild cardiomegaly and mild central pulmonary vascular congestion. BONES: No acute osseous abnormality. IMPRESSION: 1. No acute cardiopulmonary findings. 2. Mild cardiomegaly and central pulmonary vascular congestion. /[place]
--- NOTE | 2025-03-17 22:52 | EKG ---
[facility] Test Date: 2025-03-17 Test Time: 22:51:04 Pat Name: TOMER PERRY Department: [facility] Room: ED Gender: M [employer] F[employer]: 0802 : 1955 Requested By: ERIC KLEIN Order Number: [id number] Reading MD: [place] Mo Measurements Intervals [place] Rate: 126 P: 0 MA: 0 QRS: 64 QRSD: 82 T: 58 QT: 333 QTc: 483 Interpretive Statements Atrial fibrillation with rapid ventricular response Compared to ECG 03/17/2025 16:15:29 No significant changes Electronically Signed On 03-18-2025 08:44:32 HAIR CUTTER by [place] Mo Please click the below link to view image of tracing.
--- NOTE | 2025-03-17 23:00 | NUR ---
PATIENT CARE ASSUMED AT THIS TIME.
[2025-03-18 00:01] LABS: CREATINE KINASE, TOTAL 129.0 U/L (21-232)
[2025-03-18 05:59] LABS: IMMATURE GRANULOCYTE ABSOLUTE 0.01 K/uL (0-1); NUCLEATED RED BLOOD CELLS 0.0 % (0.0-0.19); PLATELET COUNT (AUTO) 102 K/uL (130-400); RED BLOOD CELL COUNT(AUTO) 4.40 MIL/uL (4.50-6.20); RED CELL DISTRIBUTION WIDTH 13.7 % (11.0-15.5); WHITE BLOOD COUNT (AUTO) 7.1 K/uL (4.8-10.8)
[2025-03-18 07:14] LABS: CREATINE KINASE, TOTAL 171.0 U/L (21-232); CREATININE 0.8 mg/dL (0.5-1.3); GLOMERULAR FILTR. RATE CALC 96.0 mL/min (>90); GLUCOSE,RANDOM 73.0 mg/dL (70-105); SODIUM SERUM 139.0 mmol/L (136-145); UREA NITROGEN, BLOOD 21.0 mg/dL (7-18)
[2025-03-18 09:33] VITALS: BP 109/72; PULSE 90; RESP 18; TEMP 98.5; O2SAT 95
[2025-03-18] MEDS ORDERED: CARV6.25 PO (11:13)
[2025-03-18] MEDS ORDERED: FURO40TA5 PO (11:13)
--- NOTE | 2025-03-18 13:32 | NUR ---
DCP: HOME Pt retired from [employer], lives with An [phone] in home they own, no issues affording home, no govt assistance. P independent of self care, drives, has a walker and w/c, no HH. PCP is Althea Olivares and uses [facility] for rx. Denies dc needs will return home at nd
--- NOTE | 2025-03-18 15:03 | NUR ---
PT STABLE NO DISTRESS VITALS WNL DR. GRACIA SPOKE TO PT THIS AFTERNOON, PT CLEARED TO GO HOME, WILL F/U IN HIS OFFICE TOMORROW FOR MEDICATION ADJUSTMENT. IV BOTH REMOVED CATHETERS INTACT. PT DRIVEN HOME BY DAUGHTER.
--- NOTE | 2025-03-19 01:56 | HP ---
HISTORY OF PRESENT ILLNESS: The patient came to the Emergency Room complaining of chronic cough for the last 3 weeks without any fever or chills. No chest pain, palpitations. No nausea or vomiting. Complaining of persistent lower extremity edema without any changes with treatment. The patient was recently seen by mobile manager. He was evaluated by Emergency Room physician and request for admission was made. Apparently, the patient had an episode of atrial fibrillation with rapid ventricular response. ALLERGIES: No known drug allergies. MEDICATIONS: Rosuvastatin, furosemide, amiodarone, Farxiga, pioglitazone, lisinopril, pantoprazole, Eliquis, Toujeo, metformin and tamsulosin. PAST MEDICAL HISTORY: Type 2 diabetes, hypertension, dyslipidemia, congestive heart failure, atrial fibrillation, chronic anticoagulation. REVIEW OF SYSTEMS: He is having no fever, chills, seizures, loss of consciousness. No chest pain, palpitations. No cough, wheezing, or rhonchi. No nausea, vomiting, or diarrhea. No dysuria or urgency. No rashes, petechiae, or ecchymosis. No hallucinations or delusions. No suicidal ideations. PHYSICAL EXAMINATION: GENERAL: He is awake, alert, and oriented in person, time, and place. VITAL SIGNS: Blood pressure 146/76, pulse 109, respiratory rate 18, and O2 saturation 98% on room air. HEENT: Normocephalic, atraumatic. LUNGS: Clear to auscultation bilaterally. HEART: S1 and S2 distant. No S3 and S4. No friction rubs. Irregular rate and rhythm. ABDOMEN: Prominence, soft, nontender. EXTREMITIES: No clubbing or cyanosis. There is 1+ pitting edema bilaterally. NEUROLOGIC: Cranial nerves II through XII grossly preserved. LABORATORY DATA: Influenza A and B and COVID tests were negative. Streptococcus A rapid test negative. WBC count 6.9, hemoglobin 13.7, platelets 103,000, sodium 138, potassium 4.2, creatinine 1, BUN 19, BMP 680. EKG shows atrial fibrillation with ventricular response of 110, rapid ventricular response. ASSESSMENT AND PLAN: * The patient will be admitted for observation. Continue with his home medications, he will be admitted on the telemetry floor. * Continue with medication for diabetes, hypertension, congestive heart failure, atrial fibrillation, anticoagulation. * The patient might be able to be discharged when is stable. DOS: 03/18/2025 TID: [id number] RECEIPT: [id number] MTDD
== END 2025-03-18 15:09 | disposition home or self-care (01) ==
LOC: EDH 15:50 → EDHIP 23:14
PROVIDERS: ADMIT Internal Medicine; ATTEND Internal Medicine
DX: R05.3 Chronic cough (principal); I11.0 Hypertensive heart disease with heart failure; I50.9 Heart failure, unspecified; I48.91 Unspecified atrial fibrillation; E11.9 Type 2 diabetes mellitus without complications; E78.5 Hyperlipidemia, unspecified; Z79.01 Long term (current) use of anticoagulants; Z79.82 Long term (current) use of aspirin; Z79.899 Other long term (current) drug therapy
CPT/HCPCS: 96374; 99285; 82550 ×2; 83735; 84484 ×3; 80048 ×2; 83880; 85025 ×2; 87880; 87804 ×2; 36415 ×2; 87635; 71045; 93005 ×2; 96376; 82948; G0378 ×16; J3490 ×2